=== PATIENT | male | born 1950 | race Caucasian/White ===

== ENCOUNTER 2020-11-22 22:06 | Inpatient (IN) | payer OTHER ==
[~2020-11-22 22:06] MED LIST: ACETAMINOPHEN 325 MG TABLET (FP) PO PRN; BISMUTH SUBSALICYLATE 524 MG/30 ML UD PO PRN; IBUPROFEN 400 MG TABLET (FP) PO PRN; MAG HYDROX/AL HYDROX/SIMETH 30 ML UNIT-DOSE CUP PO PRN; MAGNESIUM CITRATE 300 ML BOTTLE PO PRN; MAGNESIUM HYDROX 2400MG/30ML ORAL SUSPENSION 30 ML CUP PO PRN; MELATONIN 5 MG TABLETS PO SCH; MENTHOL/PHENOL 1 EACH UD MM PRN; METHOCARBAMOL 500 MG TABLET PO PRN; ONDANSETRON *ODT* 4 MG TABLET SL PRN; chlordiazePOXIDE HCL 25 MG CAPSULE PO PRN
[2020-11-22 22:09] VITALS: BMI 21.2
[2020-11-22] MEDS: chlordiazePOXIDE HCL 25 MG CAPSULE PO SCH (23:07)
[2020-11-22] MEDS ORDERED: MASKS NR ONE (23:15)
[2020-11-23] MEDS: THIAMINE HCL 100 MG TABLET (FP) PO SCH ×2 (00:42→22:30)
[2020-11-23] MEDS: chlordiazePOXIDE HCL 25 MG CAPSULE PO SCH ×5 (05:34→22:30)
[2020-11-23] MEDS: PRENATAL VITAMINS W/ FOLIC ACID TABLET (FP) PO SCH (09:41)
[2020-11-23 12:16] LABS: POTASSIUM 4.4 mmol/L (3.5-5.1)
[2020-11-23 12:18] LABS: ALBUMIN 3.6 g/dl (3.4-5.0); CALCIUM 8.9 mg/dL (8.5-10.1)
[2020-11-23 12:19] LABS: BLOOD UREA NITROGEN 15.4 mg/dL (7-18)
[2020-11-23 12:22] LABS: CREATININE 0.8 mg/dL (0.55-1.3)
[2020-11-23 12:23] LABS: BILIRUBIN,TOTAL 0.4 mg/dL (0.2-1); TOT PROT 6.6 g/dl (6.4-8.2)
[2020-11-23 12:28] LABS: HEMATOCRIT 39.6 % (35.4-49); HEMOGLOBIN 13.2 GM/dL (11.7-16.9); MCH 30.8 pg (25.7-33.7); MCHC 33.4 g/dl (32.0-35.9); MEAN CELL VOLUME 92.2 fl (80-96); MEAN PLT VOLUME 9.8 fl (7.5-11.1); PLATELET COUNT 160 K/MM3 (134-434); RDW 14.9 % (11.9-15.9)
[2020-11-23] MEDS: BACITRACIN 0.9 GM PACKET TP SCH (14:00)
[2020-11-23] MEDS: MELATONIN 5 MG TABLETS PO PRN (22:31)
[2020-11-24 00:23] LABS: URINE APPEARANCE CLEAR; URINE BILIRUBIN NEGATIVE (NEGATIVE); URINE COLOR YELLOW; URINE GLUCOSE (UA) NEGATIVE (NEGATIVE); URINE KETONE NEGATIVE (NEGATIVE); URINE LEUK ESTERASE NEGATIVE (NEGATIVE); URINE NITRITE NEGATIVE (NEGATIVE); URINE PROTEIN NEGATIVE (NEGATIVE); URINE UROBILINOGEN 0.2 mg/dL (0.2-1.0)
[2020-11-24] MEDS: chlordiazePOXIDE HCL 25 MG CAPSULE PO SCH ×4 (05:37→22:10)
[2020-11-24] MEDS: BACITRACIN 0.9 GM PACKET TP SCH (10:17)
[2020-11-24] MEDS: PRENATAL VITAMINS W/ FOLIC ACID TABLET (FP) PO SCH (10:18)
[2020-11-24] MEDS: NICOTINE POLACRILEX 2 MG GUM BUC PRN (10:19)
[2020-11-24] MEDS: THIAMINE HCL 100 MG TABLET (FP) PO SCH (22:10)
[2020-11-24] MEDS: MELATONIN 5 MG TABLETS PO PRN (22:11)
[2020-11-25] MEDS ORDERED: chlordiazePOXIDE HCL 10 MG CAPSULE PO PRN
[2020-11-25] MEDS: chlordiazePOXIDE HCL 10 MG CAPSULE PO SCH ×4 (05:48→22:16)
[2020-11-25] MEDS: BACITRACIN 0.9 GM PACKET TP SCH (10:25)
[2020-11-25] MEDS: PRENATAL VITAMINS W/ FOLIC ACID TABLET (FP) PO SCH (10:25)
[2020-11-25] MEDS ORDERED: SIMETHICONE 80 MG TAB.CHEW (FP) PO PRN (10:59)
[2020-11-25] MEDS: MELATONIN 5 MG TABLETS PO PRN (22:15)
[2020-11-25] MEDS: THIAMINE HCL 100 MG TABLET (FP) PO SCH (22:16)
[2020-11-26] MEDS: chlordiazePOXIDE HCL 10 MG CAPSULE PO SCH ×2 (05:36→17:48)
[2020-11-26] MEDS: PRENATAL VITAMINS W/ FOLIC ACID TABLET (FP) PO SCH (10:46)
[2020-11-26] MEDS: BACITRACIN 0.9 GM PACKET TP SCH (10:46)
[2020-11-26] MEDS: NICOTINE POLACRILEX 2 MG GUM BUC PRN (11:10)
[2020-11-26] MEDS: MELATONIN 5 MG TABLETS PO PRN (22:09)
[2020-11-26] MEDS: THIAMINE HCL 100 MG TABLET (FP) PO SCH (22:09)
[2020-11-27] MEDS ORDERED: chlordiazePOXIDE HCL 10 MG CAPSULE PO ONE (05:00)
[2020-11-27] MEDS: PRENATAL VITAMINS W/ FOLIC ACID TABLET (FP) PO SCH (09:27)
[2020-11-27] MEDS: BACITRACIN 0.9 GM PACKET TP SCH (09:27)
[2020-11-27 11:37] VITALS: BP 125/78; PULSE 60; TEMP 97.1
== END 2020-11-27 11:55 | disposition home or self-care (01) | DRG 897 ==
LOC: YASAS 22:06 → Y3N 22:30
PROVIDERS: ADMIT Allergy & Immunology; ATTEND Allergy & Immunology
PROC: HZ2ZZZZ Detoxification Services for Substance Abuse Treatment (ICD-10-PCS; principal; 2020-11-22)
DX: F10.230 Alcohol dependence with withdrawal, uncomplicated (principal); G40.509 Epileptic seizures related to external causes, not intractable, without status epilepticus; F17.210 Nicotine dependence, cigarettes, uncomplicated; F41.9 Anxiety disorder, unspecified; F32.9 Major depressive disorder, single episode, unspecified; I25.10 Atherosclerotic heart disease of native coronary artery without angina pectoris; A53.0 Latent syphilis, unspecified as early or late; G47.00 Insomnia, unspecified; Z56.0 Unemployment, unspecified; Z59.0 Homelessness
CPT/HCPCS: 36415; 80053; 81003; 85027; 86593; 86780; 93005; 93010; C9803; U0003